=== PATIENT | male | born 1955 | race Caucasian/White ===

== ENCOUNTER → 2020-10-27 | Day surgery (SDC) | payer OTHER ==
[~2020-10-27] MED LIST: ASMANEX110 MCG INH; GLUCOTROL 10 MG10 MG PO; ISOSORBIDE MONO30 MG PO; LISINOPRIL40 MG PO; METFORMIN HCL1000 MG PO; OMEPRAZOLE20 M1 PO; PROAIR DIGIHAL90 MCG INH; ST. JOSEPH ASPI81 M1 PO; STIOLTO RESPIMAT4 GM INH
== END | disposition home or self-care (01) ==
LOC: OR 06:22
DX: K57.30 Diverticulosis of large intestine without perforation or abscess without bleeding (principal); N40.0 Benign prostatic hyperplasia without lower urinary tract symptoms; K64.4 Residual hemorrhoidal skin tags; K59.00 Constipation, unspecified; Z79.82 Long term (current) use of aspirin; Z79.84 Long term (current) use of oral hypoglycemic drugs; Z79.899 Other long term (current) drug therapy; Z20.822 Contact with and (suspected) exposure to COVID-19
CPT/HCPCS: 82962; J2704; J7030